=== PATIENT | male | born 1990 | race Two or more races ===

== ENCOUNTER 2016-08-23 18:47 | Emergency (ER) | payer OTHER ==
[~2016-08-23] VITALS: Ht 182.9 cm; Wt 72.6 kg
[~2016-08-23 18:47] MED LIST: UNOBMED
[2016-08-23] MEDS ORDERED: TdaP Vaccine 0.5ml Syr IM ONE (19:15)
[2016-08-23 19:30] VITALS: BP 127/80
[2016-08-23] MEDS ORDERED: IBUPROFEN600 MG ORAL (19:51)
[2016-08-23 21:06] VITALS: BP 116/77
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
== END 2016-08-23 21:00 | disposition home or self-care (01) ==
LOC: EDBD 18:47 → EMR 19:02
DX: S00.91XA Abrasion of unspecified part of head, initial encounter (principal); S60.511A Abrasion of right hand, initial encounter; Y04.2XXA Assault by strike against or bumped into by another person, initial encounter; Y92.129 Unspecified place in nursing home as the place of occurrence of the external cause; M25.562 Pain in left knee; Z23 Encounter for immunization
CPT/HCPCS: 90471; 90715; 99283

== ENCOUNTER 2017-01-20 14:39 | Emergency (ER) | payer OTHER ==
[~2017-01-20] VITALS: Ht 170.2 cm; Wt 56.7 kg
[~2017-01-20 14:39] MED LIST changes: +IBUPROFEN600 MG ORAL
[2017-01-20 14:45] VITALS: BP 117/66
[2017-01-20] MEDS ORDERED: DiphenhydrAMINE 50mg/ml Inj IVP ONE (15:00)
[2017-01-20 15:30] VITALS: BP 105/87
[2017-01-20 15:33] LABS: BASOPHILS % (AUTO) 1.2 % (0.0-2.0); EOSINOPHILS % (AUTO) 1.8 % (0.0-3.0); LYMPHOCYTES % (AUTO) 36.1 % (20.0-45.0); MEAN CORPUSCULAR HEMOGLOBIN 26.1 PG (27.0-31.0); MEAN CORPUSCULAR VOLUME 79 FL (80-99); MEAN PLATELET VOLUME 8.2 FL (6.5-10.1); MONOCYTES % (AUTO) 6.9 % (1.0-10.0); PLATELET COUNT 253 K/UL (150-450); RED BLOOD COUNT 4.32 M/UL (4.70-6.10); RED CELL DISTRIBUTION WIDTH 12.7 % (11.6-14.8)
[2017-01-20 15:51] LABS: ALANINE AMINOTRANSFERASE 14 U/L (3-41); ALBUMIN/GLOBULIN RATIO 1.2 (1.0-2.7); ANION GAP 15 (5-15); ASPARTATE AMINO TRANSFERASE 23 U/L (5-40); CALCIUM 9.4 mg/dL (8.6-10.2); CARBON DIOXIDE 23 mEQ/L (20-30); CHLORIDE 100 mEQ/L (98-107); CREATININE 0.9 mg/dL (0.7-1.2); GLOMERULAR FILTRATION RATE > 60 mL/min (>60); HEMOLYSIS 4; POTASSIUM 3.6 mEQ/L (3.4-4.9); SODIUM 138 mEQ/L (135-145); TOTAL PROTEIN 7.7 g/dL (6.6-8.7)
[2017-01-20] MEDS ORDERED: MECLIZINE HCL25 MG ORAL (18:41)
[2017-01-20] MEDS ORDERED: AVONEX ADMIN P30 MCG IM (18:41)
[2017-01-20] MEDS ORDERED: METHOCARBAMOL500 MG ORAL ×2 (18:41)
[2017-01-20] MEDS ORDERED: BENZTROPINE ME0.5 MG PO (18:41)
[2017-01-20] MEDS ORDERED: LORATADINE10 M1 PO (18:41)
[2017-01-20] MEDS ORDERED: ABILIFY5 MG ORAL (18:41)
[2017-01-20] MEDS ORDERED: DIPHENHYDRAMINE25 M1 ORAL (18:41)
--- NOTE | 2017-01-20 19:00 | Emergency Room Report ---
History of Present Illness General Chief Complaint: Nausea Source: Patient Present Illness HPI This patient [facility] a [facility]. As a history of schizophrenia, and mass and states that he had some nausea over the past couple days. Apparently he vomited earlier. He denies headache or chest pain. He denies abdominal pain. He denies dysuria or hematuria. He denies diarrhea. He has no other complaints. Allergies: Coded Allergies: No Known Allergies (Unverified , 08/18/15) Patient History Past Medical History: see triage record, psych hx - schizophrenia, other - MS Social History: Denies: alcohol use, drug use, smoking Reviewed Nursing Documentation: PMH: Agreed, PSxH: Agreed Nursing Documentation-PMH Hx Cardiac Problems: No Hx Hypertension: No Hx Pacemaker: No Hx Asthma: Yes Hx COPD: No Hx Diabetes: No Hx Cancer: No Hx Gastrointestinal Problems: No Hx Dialysis: No History Of Psychiatric Problem: No Hx Neurological Problems: Yes - Multiple Sclerosis Hx Cerebrovascular Accident: No Hx Seizures: No Review of Systems All Other Systems: negative except mentioned in HPI Physical Exam Vital Signs Date Time Temp Pulse Resp B/P Pulse Ox O2 Delivery O2 Flow Rate FiO2 01/20/17 14:34 98.2 109 16 97/67 100 Room Air Sp02 EP Interpretation: reviewed, normal General Appearance: no apparent distress, alert, GCS 15, non-toxic Head: normocephalic, atraumatic Eyes: bilateral eye PERRL, bilateral eye normal inspection ENT: hearing grossly normal, normal pharynx, no angioedema, normal voice Neck: full range of motion, supple/symm/no masses Respiratory: chest non-tender, lungs clear, normal breath sounds, speaking full sentences Cardiovascular #1: regular rate, rhythm, no edema Gastrointestinal: normal bowel sounds, non tender, soft, non-distended, no guarding, no rebound Rectal: deferred Musculoskeletal: normal range of motion, non-tender, other - At baseline Neurologic: alert, responsive, motor strength/tone normal, speech normal Psychiatric: mood/affect normal, no suicidal/homicidal ideation, other - Confused at times, confabulation Skin: normal color, no rash, warm/dry, well hydrated Medical Decision Making Diagnostic Impression: Primary Impression: Nausea in adult patient ER Course Apparently this patient had presented with nausea. On my evaluation he had very little complaints. I obtained basic labs to include CBC, CMP and there were no significant findings. The patient had no further nausea or vomiting here in the emergency department. Physical exam is unremarkable. This patient does have a schizophrenia and did have an odd affect and does have ongoing features consistent with schizophrenia. Regardless, did not identify an emergency medical condition. The patient was returned to his [facility] facility. Patient was given return precautions and followup instructions. Labs Test 01/20/17 15:19 White Blood Count 5.0 K/UL (4.8-10.8) Red Blood Count 4.32 M/UL (4.70-6.10) Hemoglobin 11.3 G/DL (14.2-18.0) Hematocrit 34.1 % (42.0-52.0) Mean Corpuscular Volume 79 FL (80-99) Mean Corpuscular Hemoglobin 26.1 PG (27.0-31.0) Mean Corpuscular Hemoglobin Concent 33.0 G/DL (32.0-36.0) Red Cell Distribution Width 12.7 % (11.6-14.8) Platelet Count 253 K/UL (150-450) Mean Platelet Volume 8.2 FL (6.5-10.1) Neutrophils (%) (Auto) 54.0 % (45.0-75.0) Lymphocytes (%) (Auto) 36.1 % (20.0-45.0) Monocytes (%) (Auto) 6.9 % (1.0-10.0) Eosinophils (%) (Auto) 1.8 % (0.0-3.0) Basophils (%) (Auto) 1.2 % (0.0-2.0) Sodium Level 138 mEQ/L (135-145) Potassium Level 3.6 mEQ/L (3.4-4.9) Chloride Level 100 mEQ/L (98-107) Carbon Dioxide Level 23 mEQ/L (20-30) Anion Gap 15 (5-15) Blood Urea Nitrogen 14 mg/dL (7-23) Creatinine 0.9 mg/dL (0.7-1.2) Estimat Glomerular Filtration Rate > 60 mL/min (>60) Glucose Level 74 mg/dL (74-106) Calcium Level 9.4 mg/dL (8.6-10.2) Total Bilirubin 0.3 mg/dL (0.0-1.2) Aspartate Amino Transf (AST/SGOT) 23 U/L (5-40) Alanine Aminotransferase (ALT/SGPT) 14 U/L (3-41) Alkaline Phosphatase 47 U/L (40-129) Total Protein 7.7 g/dL (6.6-8.7) Albumin 4.2 g/dL (3.5-5.2) Globulin 3.5 g/dL Albumin/Globulin Ratio 1.2 (1.0-2.7) Last Vital Signs Date Time Temp Pulse Resp B/P Pulse Ox O2 Delivery O2 Flow Rate FiO2 01/20/17 15:30 82 14 105/87 98 Room Air 01/20/17 14:34 98.2 Disposition: HOME, SELF-CARE Condition: Improved Referrals: [facility] [place],[facility] (PCP) Patient Instructions: Nausea, Adult CAMILLE PALOMARES D.O. Jan 20, 2017 19:00
[2017-01-20 19:25] VITALS: BP 115/87
[2017-01-20 20:35] VITALS: BP 119/85
[2017-01-20 20:36] VITALS: BP 115/87
== END 2017-01-20 20:38 | disposition home or self-care (01) ==
LOC: EDBD 14:39 → EMR 16:03
DX: R11.0 Nausea (principal); F20.9 Schizophrenia, unspecified; G35 Multiple sclerosis
CPT/HCPCS: 80053; 85025; 96374; 96375; 99284; J0780; J1200

== ENCOUNTER 2017-03-12 02:26 | Emergency (ER) | payer MEDICAID, OTHER ==
[~2017-03-12] VITALS: Ht 172.7 cm; Wt 56.2 kg
[~2017-03-12 02:26] MED LIST changes: +ABILIFY5 MG ORAL; +AVONEX ADMIN P30 MCG IM; +BENZTROPINE ME0.5 MG PO; +DIPHENHYDRAMINE25 M1 ORAL; +LORATADINE10 M1 PO; +MECLIZINE HCL25 MG ORAL; +METHOCARBAMOL500 MG ORAL
[2017-03-12 02:33] VITALS: BP 122/81
[2017-03-12] MEDS ORDERED: Ketorolac 60mg Inj IM ONE (02:45)
--- NOTE | 2017-03-12 03:11 | Emergency Room Report ---
History of Present Illness General Chief Complaint: Back Pain-No Injury Source: Patient, EMS Present Illness HPI Patient states he has back pain for 6 months. He was evaluated recently at [facility] for the same problem. He states he got a shot and that made him feel better. He states he takes Tylenol for the pain. The patient reports a history of multiple sclerosis and used to get injections weekly but no longer needs treatment at this time. The patient has been living at a [facility] facility ever since his father 4 years ago. He denies fevers, incontinence, numbness or weakness, oncologic problems or blood thinning medication. Allergies: Coded Allergies: No Known Allergies (Unverified , 08/18/15) Patient History Past Medical History: see triage record Social History Narrative [facility] Reviewed Nursing Documentation: PMH: Agreed, PSxH: Agreed Nursing Documentation-PMH Past Medical History: No History, Except For Hx Cardiac Problems: No Hx Hypertension: No Hx Pacemaker: No Hx Asthma: Yes Hx COPD: No Hx Diabetes: No Hx Cancer: No Hx Gastrointestinal Problems: No Hx Dialysis: No Hx Neurological Problems: Yes - Multiple Sclerosis Hx Cerebrovascular Accident: No Hx Seizures: No Review of Systems All Other Systems: negative except mentioned in HPI Physical Exam Vital Signs Date Time Temp Pulse Resp B/P Pulse Ox O2 Delivery O2 Flow Rate FiO2 03/12/17 02:26 97.7 73 18 122/81 98 Room Air Sp02 EP Interpretation: reviewed, normal General Appearance: well appearing, no apparent distress, GCS 15 Head: normocephalic Eyes: bilateral eye PERRL, bilateral eye normal inspection ENT: moist mucus membranes - poor dentition Neck: supple Respiratory: lungs clear, normal breath sounds Cardiovascular #1: regular rate, rhythm Cardiovascular #2: 2+ radial (R) Gastrointestinal: normal inspection, normal bowel sounds, non tender, no mass, non-distended Musculoskeletal: gait/station normal, normal range of motion, no calf tenderness, tender - mid back with muscle spasm, mild, no bone tenderness. SLR negative bilat Neurologic: alert, oriented x3, motor strength/tone normal, DTRs symmetric, sensory intact Psychiatric: no suicidal/homicidal ideation, depressed affect - possible developmental delay Reflexes: 2+ knee (R), 2+ knee (L), 2+ ankle (R), 2+ ankle (L) Skin: normal inspection, warm/dry Medical Decision Making Diagnostic Impression: Primary Impression: Back pain ER Course Patient presents with mid back pain. DDx; disk, strain, muscle spasm. No red flag signs or symptoms. No imaging indicated. Will give analgesia here. Patient improved with treatment. Patient stable for outpatient observation and treatment. Last Vital Signs Date Time Temp Pulse Resp B/P Pulse Ox O2 Delivery O2 Flow Rate FiO2 03/12/17 04:33 80 15 129/79 99 Room Air 03/12/17 04:33 98.0 Status: improved Disposition: ASSISTED LIVING Condition: Improved Scripts Ibuprofen* (MOTRIN*) 600 Mg Tablet 600 MG ORAL Q6H Y for For Pain, #20 TAB Prov: Chandu Kaur M.D. 03/12/17 Referrals: [facility]/,REFERRING (PCP) Chandu Kaur M.D. Mar 12, 2017 03:11
[2017-03-12] MEDS ORDERED: IBUPROFEN600 MG ORAL (03:13)
[2017-03-12 04:33] VITALS: BP 129/79
== END 2017-03-12 05:00 | disposition home or self-care (01) ==
LOC: EDBD 02:26 → EMR 02:43
DX: M54.9 Dorsalgia, unspecified (principal); G35 Multiple sclerosis; J45.909 Unspecified asthma, uncomplicated
CPT/HCPCS: 96372; 99283

== ENCOUNTER 2017-03-29 09:14 | Emergency (ER) | payer MEDICAID ==
[~2017-03-29] VITALS: Ht 170.2 cm; Wt 59.0 kg
[2017-03-29] MEDS ORDERED: TYLENOL325 MG ORAL (09:21)
--- NOTE | 2017-03-29 09:31 | Emergency Room Report ---
History of Present Illness General Chief Complaint: Lower Back Pain or Injury Source: Patient Present Illness HPI 26YOM with known MS BIBEMS for lower back pain "for 2 years." No acute worsening, injury. Ambulatory Had "injection for MS 2 days ago," gets weekly. Denies urinary/fecal incontinence, lower extremity weakness, fever/chills Atraumatic Usually takes tylenol for pain Lives at [facility] Allergies: Coded Allergies: No Known Allergies (Unverified , 08/18/15) UNABLE TO ASSESS (Unverified , 03/29/17) Patient History Past Medical History: other - MS Past Surgical History: none Pertinent Family History: none Social History: Denies: smoking, alcohol use, drug use Immunizations: UTD Reviewed Nursing Documentation: PMH: Agreed, PSxH: Agreed Nursing Documentation-PMH Hx Hypertension: No Hx Pacemaker: No Hx Asthma: Yes Hx COPD: No Hx Diabetes: No Hx Cancer: No Hx Gastrointestinal Problems: No Hx Dialysis: No Hx Neurological Problems: Yes - Multiple Sclerosis Hx Cerebrovascular Accident: No Hx Seizures: No Review of Systems All Other Systems: negative except mentioned in HPI Physical Exam Vital Signs Date Time Temp Pulse Resp B/P (MAP) Pulse Ox O2 Delivery O2 Flow Rate FiO2 03/29/17 08:48 98.4 91 16 107/71 100 Room Air Sp02 EP Interpretation: reviewed, normal General Appearance: normal inspection, well appearing, no apparent distress, alert, GCS 15, non-toxic, cachetic, other - disheveled Head: normocephalic, atraumatic Eyes: bilateral eye PERRL, bilateral eye EOMI ENT: normal ENT inspection, hearing grossly normal, normal voice Neck: normal inspection, full range of motion, supple, no bony tend Respiratory: normal inspection, lungs clear, normal breath sounds, no respiratory distress, no retraction, no wheezing Cardiovascular #1: regular rate, rhythm, no edema Gastrointestinal: normal inspection, normal bowel sounds, non tender, soft, no guarding, no hernia Genitourinary: no CVA tenderness Musculoskeletal: normal inspection, back normal, normal range of motion, Miguelina' s Sign negative Neurologic: normal inspection, alert, oriented x3, responsive, feed preparation operator III-XII nml as tested, motor strength/tone normal, speech normal Psychiatric: normal inspection, judgement/insight normal, mood/affect normal Skin: normal inspection, normal color, no rash Medical Decision Making Diagnostic Impression: Primary Impression: Low back pain Qualified Codes: M54.5 - Low back pain; G89.29 - Other chronic pain ER Course Chronic LBP VSS. Afebrile No focal neuro deficits low suspicion for cord compression given well appearance, bilateral lower back ttp, no focal neuro deficits, absence of midline ttp/masses and pain worse with movement with known exacerbating activity Tylenol given in ED with Rx for same Advised PMD followup Last Vital Signs Date Time Temp Pulse Resp B/P (MAP) Pulse Ox O2 Delivery O2 Flow Rate FiO2 03/29/17 08:48 98.4 91 16 107/71 100 Room Air Status: improved Disposition: HOME, SELF-CARE Condition: Improved Scripts Acetaminophen (Tylenol) 325 Mg Tablet 650 MG ORAL Q6H Y for Prn Pain/Headache/Temp > 101 for 7 Days, #30 TAB 0 Refills Prov: SILVIA DOUGLASS M.D. 03/29/17 Patient Instructions: Lumbosacral Strain SILVIA DOUGLASS M.D. Mar 29, 2017 09:31
[2017-03-29 10:31] VITALS: BP 115/78
== END 2017-03-29 10:37 | disposition home or self-care (01) ==
LOC: EDBD 09:14 → EMR 10:05
DX: M54.5 Low back pain (principal); J45.909 Unspecified asthma, uncomplicated; G35 Multiple sclerosis
CPT/HCPCS: 99283

== ENCOUNTER 2017-06-04 01:05 | Emergency (ER) | payer MEDICAID ==
[~2017-06-04] VITALS: Ht 172.7 cm; Wt 64.0 kg
[2017-06-04 01:04] VITALS: BP 128/78
[~2017-06-04 01:05] MED LIST changes: +TYLENOL325 MG ORAL
[2017-06-04] MEDS ORDERED: IBUPROFEN600 MG ORAL (01:10)
--- NOTE | 2017-06-04 01:10 | Emergency Room Report ---
History of Present Illness General Chief Complaint: Back Pain-No Injury Source: Patient Present Illness HPI Is a 26-year-old male resided in a [facility]. He presents with chief complaint is back pain. This is a chronic issue. He called 911 because he says hurting for the last 2 and half weeks. No trauma. No fever chills but no nausea no vomiting. No incontinence of bowel or urine. Nothing made it better nothing made it worse. Allergies: Coded Allergies: No Known Allergies (Unverified , 08/18/15) UNABLE TO ASSESS (Unverified , 03/29/17) Patient History Past Medical History: see triage record, old chart reviewed, psych hx Past Surgical History: none Pertinent Family History: none Social History: Denies: drug use Immunizations: other Reviewed Nursing Documentation: PMH: Agreed, PSxH: Agreed Nursing Documentation-PMH Hx Hypertension: No Hx Pacemaker: No Hx Asthma: Yes Hx COPD: No Hx Diabetes: No Hx Cancer: No Hx Gastrointestinal Problems: No Hx Dialysis: No Hx Neurological Problems: Yes - Multiple Sclerosis Hx Cerebrovascular Accident: No Hx Seizures: No Review of Systems Eye: Denies: eye pain, blurred vision ENT: Denies: ear pain, nose congestion, throat swelling Respiratory: Denies: cough, shortness of breath Cardiovascular: Denies: chest pain, palpitations Gastrointestinal: Denies: abdominal pain, diarrhea, nausea, vomiting Musculoskeletal: Reports: back pain, Denies: joint pain Skin: Denies: rash Neurological: Denies: headache, numbness Endocrine: Denies: increased thirst, increased urine Hematologic/Lymphatic: Denies: easy bruising All Other Systems: negative except mentioned in HPI Physical Exam Vital Signs Date Time Temp Pulse Resp B/P (MAP) Pulse Ox O2 Delivery O2 Flow Rate FiO2 06/04/17 00:57 97.9 85 18 128/78 98 Room Air vitals normal Sp02 EP Interpretation: reviewed, normal General Appearance: well appearing, no apparent distress, alert Head: normocephalic, atraumatic Eyes: bilateral eye PERRL, bilateral eye EOMI ENT: hearing grossly normal, normal pharynx Neck: full range of motion, supple, no meningismus Respiratory: chest non-tender, lungs clear, normal breath sounds Cardiovascular #1: regular rate, rhythm, no murmur Gastrointestinal: normal bowel sounds, non tender, no mass, no organomegaly, no bruit, non-distended Musculoskeletal: back normal, gait/station normal, normal range of motion Psychiatric: mood/affect normal Skin: warm/dry Medical Decision Making Diagnostic Impression: Primary Impression: Back pain Qualified Codes: M54.6 - Pain in thoracic spine ER Course Patient is is the back pain. This is a chronic issue. On examination he has no pain. No red flags indicate cauda equina syndrome, spinal after abscess or neoplastic process. We'll discharge back to the boarding care. Last Vital Signs Date Time Temp Pulse Resp B/P (MAP) Pulse Ox O2 Delivery O2 Flow Rate FiO2 06/04/17 00:57 97.9 85 18 128/78 98 Room Air Status: improved Disposition: HOME, SELF-CARE Condition: Stable Scripts Ibuprofen* (MOTRIN*) 600 Mg Tablet 600 MG ORAL THREE TIMES A DAY, #30 TAB 0 Refills Prov: TRINI HERNANDEZ M.D. 06/04/17 Patient Instructions: Back Pain, Adult Additional Instructions: Followup with your Dr. in 7 days. Return it worse. TRINI HERNANDEZ M.D. Jun 04, 2017 01:10
[2017-06-04 01:30] VITALS: BP 128/78
== END 2017-06-04 01:30 | disposition home or self-care (01) ==
LOC: EDBD 01:05 → EMR 01:20
DX: M54.9 Dorsalgia, unspecified (principal); G89.29 Other chronic pain; J45.909 Unspecified asthma, uncomplicated; G35 Multiple sclerosis
CPT/HCPCS: 99283

== ENCOUNTER 2017-06-04 22:40 | Emergency (ER) | payer MEDICAID ==
[~2017-06-04] VITALS: Ht 172.7 cm; Wt 64.0 kg
[2017-06-04 22:40] VITALS: BP 126/83
--- NOTE | 2017-06-04 22:51 | Emergency Room Report ---
History of Present Illness General Chief Complaint: Back Pain-No Injury Source: Patient Present Illness HPI 26-year-old male with a psych history history. He presents with chief complaint of back pain. His been a chronic issue. He called 911 frequently. He lives in a boarding care. He called from a phone. He was here last night for the same thing. No trauma. Pain is 7/10. Localized to the mid lower back. No other complaint. Allergies: Coded Allergies: No Known Allergies (Unverified , 08/18/15) UNABLE TO ASSESS (Unverified , 03/29/17) Patient History Past Medical History: see triage record, old chart reviewed, psych hx Past Surgical History: none Pertinent Family History: none Social History: Denies: smoking Immunizations: other Reviewed Nursing Documentation: PMH: Agreed, PSxH: Agreed Nursing Documentation-PMH Hx Hypertension: No Hx Pacemaker: No Hx Asthma: Yes Hx COPD: No Hx Diabetes: No Hx Cancer: No Hx Gastrointestinal Problems: No Hx Dialysis: No Hx Neurological Problems: Yes - Multiple Sclerosis Hx Cerebrovascular Accident: No Hx Seizures: No Review of Systems Eye: Denies: eye pain, blurred vision ENT: Denies: ear pain, nose congestion, throat swelling Respiratory: Denies: cough, shortness of breath Cardiovascular: Denies: chest pain, palpitations Gastrointestinal: Denies: abdominal pain, diarrhea, nausea, vomiting Musculoskeletal: Reports: back pain, Denies: joint pain Skin: Denies: rash Neurological: Denies: headache, numbness Endocrine: Denies: increased thirst, increased urine Hematologic/Lymphatic: Denies: easy bruising All Other Systems: negative except mentioned in HPI Physical Exam Vital Signs Date Time Temp Pulse Resp B/P (MAP) Pulse Ox O2 Delivery O2 Flow Rate FiO2 06/04/17 22:33 97.7 76 16 126/83 98 Room Air vitals normal Sp02 EP Interpretation: reviewed, normal General Appearance: well appearing, no apparent distress, alert Head: normocephalic, atraumatic Eyes: bilateral eye PERRL, bilateral eye EOMI ENT: hearing grossly normal, normal pharynx Neck: full range of motion, supple, no meningismus Respiratory: chest non-tender, lungs clear, normal breath sounds Cardiovascular #1: regular rate, rhythm, no murmur Gastrointestinal: normal bowel sounds, non tender, no mass, no organomegaly, no bruit, non-distended Musculoskeletal: back normal, gait/station normal, normal range of motion Psychiatric: mood/affect normal Skin: warm/dry Medical Decision Making Diagnostic Impression: Primary Impression: Back pain Qualified Codes: M54.9 - Dorsalgia, unspecified; G89.29 - Other chronic pain ER Course Patient presents with chief complaint of back pain. No red flags indicate cauda equina syndrome, spinal epidural abscess or neoplastic process. We'll sent back to the boarding care. I suspect that this is more of a psychiatric issue. Last Vital Signs Date Time Temp Pulse Resp B/P (MAP) Pulse Ox O2 Delivery O2 Flow Rate FiO2 06/04/17 22:40 97.7 76 16 126/83 98 Room Air Status: improved Disposition: HOME, SELF-CARE Condition: Stable Patient Instructions: Back Pain, Adult Additional Instructions: Take your medication. Return if symptom worsen. Followup with your Dr. in 7 days as needed. TRINI HERNANDEZ M.D. Jun 04, 2017 22:51
[2017-06-04 23:42] VITALS: BP 126/83
== END 2017-06-04 23:42 | disposition home or self-care (01) ==
LOC: EDBD 22:40 → EMR 22:48
DX: G89.29 Other chronic pain (principal); M54.9 Dorsalgia, unspecified; G35 Multiple sclerosis; J45.909 Unspecified asthma, uncomplicated
CPT/HCPCS: 99283